=== PATIENT | female | born 1980 | race Caucasian/White ===

== ENCOUNTER 2017-12-06 22:56 | Emergency (ER) | payer OTHER ==
[2017-12-06] MEDS ORDERED: BENZONATATE 100 MG CAPSULE PO ONE (23:43)
--- NOTE | 2017-12-06 23:49 | ER Document Report ---
HPI - HPI Pain Level: 4 Notes: Patient is a 37-year-old female with no significant past medical history presents to the ED complaining of nasal congestion/discharge, dry nonproductive cough, body ache, subjective fever, and occasional nausea/vomiting with p.o. intake only. Her symptoms have been ongoing for the last 6-7 days. Pt states that she vomited once this morning, no hematemesis, melena, or hematochezia. Patient has been exposed to a similar illness within her family. She still urinating normally and having normal bowel movements. Patient states that she is still eating and drinking without any difficulties, but does have a decreased p.o. intake. Denies any headache, current fever, neck pain, sore throat, chest pain, palpitations, syncope, shortness of breath, wheeze, dyspnea , abdominal pain, diarrhea, urinary retention, dysuria, hematuria, or rash. - ROS Notes: REVIEW OF SYSTEMS: CONSTITUTIONAL : see hpi EENT: see hpi CARDIOVASCULAR: Denies chest pain. Denies palpitations or racing or irregular heart beat. Denies ankle edema. RESPIRATORY: see hpi. Denies shortness of breath, difficulty breathing, or wheezing. GASTROINTESTINAL: see hpi. Denies abdominal pain or distention. Denies blood in vomitus, stools, or per rectum. GENITOURINARY: Denies difficulty urinating, painful urination, burning, frequency, blood in urine, or discharge. MUSCULOSKELETAL: Denies back or neck pain or stiffness. Denies joint pain or swelling. SKIN: Denies rash, lesions or sores. NEUROLOGICAL: Denies confusion or altered mental status. Denies passing out or loss of consciousness. Denies dizziness or lightheadedness. Denies headache. Denies problems with gait or speech. Denies sensory loss, numbness, or tingling. Denies seizures. ALL OTHER SYSTEMS REVIEWED AND NEGATIVE. Dictation was performed using [employer] voice recognition software - EENT EENT: DENIES: Sore Throat, Ear Pain, Eye problems - NEURO Neurology: DENIES: Headache, Weakness, Vision blurred, Dizzinesss / Vertigo - CARDIOVASCULAR Cardiovascular: DENIES: Chest pain - RESPIRATORY Respiratory: REPORTS: Coughing. DENIES: Trouble Breathing - GASTROINTESTINAL Gastrointestinal: DENIES: Abdominal Pain, Black / Bloody Stools - URINARY Urinary: DENIES: Dysuria - MUSCULOSKELETAL Musculoskeletal: DENIES: Extremity pain Past Medical History - Social History Smoking Status: Never Smoker Family History: Reviewed & Not Pertinent Patient has suicidal ideation: No Patient has homicidal ideation: No Pulmonary Medical History: Reports: Hx Asthma Renal/ Medical History: Denies: Hx Peritoneal Dialysis Vertical Provider Document - CONSTITUTIONAL Agree With Documented VS: Yes Notes: PHYSICAL EXAMINATION: GENERAL: Well-appearing, well-nourished and in no acute distress. A&Ox4 HEAD: Atraumatic, normocephalic. EYES: Pupils equal round and reactive to light, extraocular movements intact, sclera anicteric, conjunctiva are normal. ENT: EAC clear b/l. TM's intact b/l without erythema, fluid, or perforation. Nares patent and with clear discharge. oropharynx mild erythema without exudates. No tonsilar hypertrophy & without erythema or exudate. No palatine shift. Uvula midline. No tongue protrusion. No drooling, hoarseness, or airway compromise. Moist mucous membranes. No sinus tenderness. NECK: Normal range of motion, supple without lymphadenopathy. No rigidity/ meningismus. LUNGS: Breath sounds clear to auscultation bilaterally and equal. No wheezes rales or rhonchi. HEART: Regular rate and rhythm without murmurs, rubs, gallops. ABDOMEN: Soft, nontender, nondistended abdomen. No guarding, no rebound. No masses appreciated. Normal bowel sounds present. No CVA tenderness bilaterally. No obvious hepatosplenomegaly. Obese abdomen. NEUROLOGICAL: Normal speech, normal gait. Normal sensory, motor exams PSYCH: Normal mood, normal affect. SKIN: Warm, Dry, normal turgor, no rashes or lesions noted. Course - Re-evaluation Re-evalutation: 12/06/17 23:47 Patient is an afebrile, well-hydrated, 37-year-old female who presents to the ED with acute URI, suspect viral. Vitals are stable. PE is otherwise unremarkable. No labs or imaging warranted at this time based on H&P. Low suspicion for any meningitis, sepsis, peritonsillar/pharyngeal abscess, respiratory compromise, Andres's, severe dehydration, acute abdomen, or other emergent systemic condition at this time. Patient is aware this condition can change from initial presentation and she needs to monitor symptoms closely. Conservative measures otherwise for symptoms. Recheck with your PCM in 3-5 days. Return to the ED with any worsening/concerning symptoms otherwise as reviewed in discharge. Patient is in agreement. Discharge - Discharge Clinical Impression: Acute URI Condition: Stable Disposition: HOME, SELF-CARE Instructions: Upper Respiratory Illness ([facility]), Nausea or Vomiting, Nonspecific ([facility]) Additional Instructions: Maintain adequate fluid intake Take meds as directed [place] diet Zofran as needed Tessalon as needed for cough every 8 hours tylenol/ibuprofen as needed over the counter cold medication as needed for symptoms Humidified air may help F/u: with your PCM in 3-5 days for a recheck Return to the ED with any fever, worsening pain, chest pain, palpitations, syncope, worsening PORTER, neck pain/stiffness, shortness of breath, wheezing, drooling, trouble swallowing/breathing, abdominal pain, worsening n/v/d, rash, or worsening/concerning symptoms otherwise. Prescriptions: Benzonatate [Tessalon Perle 100 mg Capsule] 100 mg PO Q8HP PRN #15 cap PRN Reason: Ondansetron [Zofran Odt 4 mg Tablet] 1 - 2 tab PO Q4H PRN #15 tab.rapdis PRN Reason: For Nausea/Vomiting Referrals: [facility] [Provider Group] - Follow up as needed [facility] [Provider Group] - Follow up as needed
[2017-12-07 00:10] VITALS: BP 127/69
== END 2017-12-07 00:05 | disposition home or self-care (01) ==
LOC: ER 22:56
DX: J06.9 Acute upper respiratory infection, unspecified (principal); R05 Cough; R09.89 Other specified symptoms and signs involving the circulatory and respiratory systems; R11.2 Nausea with vomiting, unspecified; R52 Pain, unspecified; J45.909 Unspecified asthma, uncomplicated
CPT/HCPCS: 99283

== ENCOUNTER 2018-03-05 14:38 | Emergency (ER) | payer OTHER ==
[2018-03-05] MEDS ORDERED: NORMAL SALINE 1000 ML 1,000 ML IV ONE (14:56)
[2018-03-05] MEDS ORDERED: ONDANSETRON HCL INJ/PF 4 MG/2 ML SDV IV ONE (14:56)
[2018-03-05] MEDS ORDERED: MORPHINE SULFATE 10 MG/ML INJ IV ONE (14:57)
--- NOTE | 2018-03-05 14:58 | ER Document Report ---
ED Medical Screen (RME) - General Chief Complaint: Upper Abdominal Pain Stated Complaint: ABDOMINAL PAIN Time Seen by Provider: 03/05/18 14:56 Notes: Patient has severe right upper quadrant abdominal pain with nausea and vomiting. States this started approximately 3 days ago. She states she recently had a total hysterectomy for uterine cancer approximately 9 months ago. TRAVEL OUTSIDE OF THE [place] IN LAST 30 DAYS: No - Related Data Allergies/Adverse Reactions: Penicillins Allergy (Verified 03/05/18 14:50) Past Medical History - Social History Chew tobacco use (# tins/day): No Frequency of alcohol use: None Drug Abuse: None Pulmonary Medical History: Reports: Hx Asthma Renal/ Medical History: Denies: Hx Peritoneal Dialysis Past Surgical History: Reports: Hx Abdominal Surgery Physical Exam - Vital signs Vitals: Temp Pulse Resp BP Pulse Ox 97.8 F 82 16 144/83 H 97 03/05/18 14:42 03/05/18 14:42 03/05/18 14:42 03/05/18 14:42 03/05/18 14:42 Course - Vital Signs Vital signs: Temp Pulse Resp BP Pulse Ox 97.8 F 82 16 144/83 H 97 03/05/18 14:42 03/05/18 14:42 03/05/18 14:42 03/05/18 14:42 03/05/18 14:42
[2018-03-05] MEDS ORDERED: HYDROMORPHONE HCL INJ/PF 2 MG/ML AMPULE IV ONE (16:08)
--- NOTE | 2018-03-05 16:08 | ER Document Report ---
ED GI/ - General Chief Complaint: Upper Abdominal Pain Stated Complaint: ABDOMINAL PAIN Time Seen by Provider: 03/05/18 14:56 Mode of Arrival: Ambulatory Information source: Patient Notes: Patient presents complaining of 3 day history of right upper quadrant abdominal pain that is worsened after eating. Patient reports nausea with diarrhea yesterday. Patient denies any vomiting or fever. Patient denies any urinary symptoms. TRAVEL OUTSIDE OF THE [place] IN LAST 30 DAYS: No - HPI Patient complains to provider of: Abdominal pain. No: Flank pain, Vomiting Onset: Other - 3 days Timing/Duration: Worse Quality of pain: Sharp Pain Level: 5 Location: RUQ Vaginal bleeding (Compared to normal period): None Sexual history: Active Associated symptoms: Diarrhea - Yesterday, Nausea. denies: Urinary hesitancy, Urinary frequency, Urinary retention, Vomiting Exacerbated by: Food Relieved by: Denies Similar symptoms previously: No Recently seen / treated by doctor: No - Related Data Allergies/Adverse Reactions: Penicillins Allergy (Verified 03/05/18 14:50) Past Medical History - General Information source: Patient - Social History Smoking Status: Never Smoker Chew tobacco use (# tins/day): No Frequency of alcohol use: None Drug Abuse: None Lives with: Spouse/Significant other Family History: Reviewed & Not Pertinent Patient has suicidal ideation: No Patient has homicidal ideation: No - Past Medical History Cardiac Medical History: Reports: Hx Hypertension Pulmonary Medical History: Reports: Hx Asthma Renal/ Medical History: Denies: Hx Peritoneal Dialysis Psychiatric Medical History: Reports: Hx Anxiety, Hx Depression Past Surgical History: Reports: Hx Abdominal Surgery Review of Systems - Review of Systems Constitutional: No symptoms reported. denies: Fever, Recent illness EENT: No symptoms reported Cardiovascular: No symptoms reported. denies: Chest pain Respiratory: No symptoms reported. denies: Cough, Short of breath Gastrointestinal: Abdominal pain, Diarrhea, Nausea. denies: Vomiting Genitourinary: No symptoms reported. denies: Dysuria, Flank pain Female Genitourinary: No symptoms reported Musculoskeletal: No symptoms reported. denies: Back pain Skin: No symptoms reported Hematologic/Lymphatic: No symptoms reported Neurological/Psychological: No symptoms reported Physical Exam - Vital signs Vitals: Temp Pulse Resp BP Pulse Ox 97.8 F 82 16 144/83 H 97 03/05/18 14:42 03/05/18 14:42 03/05/18 14:42 03/05/18 14:42 03/05/18 14:42 - General General appearance: Appears well, Alert In distress: Mild - HEENT Head: Normocephalic Eyes: Normal Nasal: Normal Mouth/Lips: Normal Mucous membranes: Normal Pharynx: Normal Neck: Normal, Supple. No: Lymphadenopathy - Respiratory Respiratory status: No respiratory distress Chest status: Nontender Breath sounds: Normal. No: Rales, Rhonchi, Stridor, Wheezing Chest palpation: Normal - Cardiovascular Rhythm: Regular Heart sounds: S1 appreciated, S2 appreciated Murmur: No - Abdominal Inspection: Morbidly Obese Distension: No distension Bowel sounds: Normal Tenderness: Tender - Right upper quadrant - Back Back: Normal, Nontender. No: CVA tenderness - Extremities General upper extremity: Normal inspection, Nontender, Normal strength General lower extremity: Normal inspection, Nontender, Normal strength - Neurological Neuro grossly intact: Yes Cognition: Normal [place] Coma Scale Eye Opening: Spontaneous Raquel Coma Scale Verbal: Oriented Raquel Coma Scale Motor: Obeys Commands Raquel Coma Scale Total: 15 - Psychological Associated symptoms: Normal affect, Normal mood - Skin Skin Temperature: Warm Skin Moisture: Dry Skin Color: Normal Course - Re-evaluation Re-evalutation: 03/05/18 18:19 Patient complains of continued abdominal pain is requesting additional medication. Patient advised of diagnostic test results and importance of follow -up with a surgeon for further evaluation. Patient encouraged to eat a low-fat diet. - Vital Signs Vital signs: Temp Pulse Resp BP Pulse Ox 98.0 F 80 16 143/82 H 98 03/05/18 19:00 03/05/18 19:00 03/05/18 19:00 03/05/18 19:00 03/05/18 19:00 - Laboratory Result Diagrams: 03/05/18 16:09 03/05/18 16:09 Laboratory results interpreted by me: 03/05/18 03/05/18 16:09 16:09 RBC 5.41 H Hgb 9.9 L Hct 32.6 L MCV 60 L MCH 18.3 L MCHC 30.4 L RDW 22.2 H Lipase 344.4 H Labs- Entire Visit 03/05/18 03/05/18 03/05/18 15:45 16:09 16:09 WBC 8.2 RBC 5.41 H Hgb 9.9 L Hct 32.6 L MCV 60 L MCH 18.3 L MCHC 30.4 L RDW 22.2 H Plt Count 382 Seg Neutrophils % 60.0 Lymphocytes % 27.6 Monocytes % 8.3 Eosinophils % 3.5 Basophils % 0.6 Absolute Neutrophils 4.9 Absolute Lymphocytes 2.3 Absolute Monocytes 0.7 Absolute Eosinophils 0.3 Absolute Basophils 0.0 Large Platelets PRESENT Platelet Comment ADEQUATE Hypochromasia 1+ Poikilocytosis SLIGHT Anisocytosis 3+ Microcytosis 3+ Target Cells SLIGHT Ovalocytes 1+ Sodium 142.8 Potassium 4.5 Chloride 106 Carbon Dioxide 26 Anion Gap 11 BUN 16 Creatinine 0.75 Est GFR ( Amer) > 60 Est GFR (Non-Af Amer) > 60 Glucose 96 Calcium 9.4 Total Bilirubin 0.7 Direct Bilirubin 0.3 Neonat Total Bilirubin Not Reportable Neonat Direct Bilirubin Not Reportable Neonat Indirect Bili Not Reportable AST 24 ALT 28 Alkaline Phosphatase 94 Total Protein 7.4 Albumin 4.0 Lipase 344.4 H Urine Color STRAW Urine Appearance CLEAR Urine pH 5.0 Ur Specific [place] 1.010 Urine Protein NEGATIVE Urine Glucose (UA) NEGATIVE Urine Ketones NEGATIVE Urine Blood NEGATIVE Urine Nitrite NEGATIVE Urine Bilirubin NEGATIVE Urine Urobilinogen NEGATIVE Ur Leukocyte Esterase NEGATIVE Urine WBC (Auto) 2 Urine RBC (Auto) 0 Urine Bacteria (Auto) TRACE Squamous Epi Cells Auto 2 Urine Ascorbic Acid NEGATIVE - Diagnostic Test Radiology reviewed: Reports reviewed Discharge - Discharge Clinical Impression: Cholelithiasis Qualifiers: Cholelithiasis location: gallbladder Cholecystitis presence: without cholecystitis Biliary obstruction: without biliary obstruction Qualified Code(s) : K80.20 - Calculus of gallbladder without cholecystitis without obstruction Abdominal pain Qualifiers: Abdominal location: right upper quadrant Qualified Code(s): R10.11 - Right upper quadrant pain Condition: Stable Disposition: HOME, SELF-CARE Instructions: Abdominal Pain ([facility]), Gallbladder Disease ([facility]) Additional Instructions: Return immediately for any new or worsening symptoms: Worsening pain, vomiting, yellowing of the skin and darkening of the urine, or any concerning symptoms Followup with your primary care provider, call tomorrow to make a followup appointment Follow-up with a general surgeon for further evaluation, call tomorrow for an appointment Eat a low fat diet Prescriptions: Oxycodone HCl/Acetaminophen [Percocet 5-325 mg Tablet] 1 - 2 tab PO ASDIR PRN # 15 tablet PRN Reason: Promethazine HCl [Phenergan 25 mg Tablet] 25 mg PO Q6H PRN #10 tablet PRN Reason: Referrals: [facility] [Provider Group] - Follow up in 3-5 days
[2018-03-05 16:39] LABS: ABSOLUTE EOSINOPHILS # (AUTO) 0.3 10^3/uL (0.0-0.6); ABSOLUTE LYMPHOCYTES (AUTO) 2.3 10^3/uL (0.5-4.7); ABSOLUTE MONOCYTES (AUTO) 0.7 10^3/uL (0.1-1.4); ABSOLUTE NEUT (AUTO) 4.9 10^3/uL (1.7-8.2); BASOPHILS % (AUTO) 0.6 % (0-2); EOSINOPHILS % (AUTO) 3.5 % (0-6); HEMATOCRIT 32.6 % (36.0-47.0); HEMOGLOBIN 9.9 g/dL (12.0-15.5); LYMPHOCYTES % (AUTO) 27.6 % (13-45); MEAN CORPUSCULAR HEMOGLOBIN 18.3 pg (27.0-33.4); MEAN CORPUSCULAR HGB CONC 30.4 g/dL (32.0-36.0); MONOCYTES % (AUTO) 8.3 % (3-13); PLATELET COUNT 382 10^3/uL (150-450); RED BLOOD COUNT 5.41 10^6/uL (3.72-5.28); RED CELL DISTRIBUTION WIDTH 22.2 % (11.5-14.0); TOTAL CELLS COUNTED % (AUTO) 100 %; WHITE BLOOD COUNT 8.2 10^3/uL (4.0-10.5)
[2018-03-05 16:55] LABS: ALANINE AMINOTRANSFERASE 28 U/L (9-52); ALKALINE PHOSPHATASE 94 U/L (38-126); ANION GAP 11 (5-19); ASPARTATE AMINO TRANSFERASE 24 U/L (14-36); BILIRUBIN,DIRECT 0.3 mg/dL (0.0-0.4); BILIRUBIN,TOTAL 0.7 mg/dL (0.2-1.3); BLOOD UREA NITROGEN 16 mg/dL (7-20); CALCIUM 9.4 mg/dL (8.4-10.2); CARBON DIOXIDE 26 mmol/L (22-30); CHLORIDE 106 mmol/L (98-107); GLUCOSE 96 mg/dL (75-110); LIPASE 344.4 U/L (23-300); POTASSIUM 4.5 mmol/L (3.6-5.0); SODIUM 142.8 mmol/L (137-145); TOTAL PROTEIN 7.4 g/dL (6.3-8.2)
--- NOTE | 2018-03-05 17:00 | RADIOLOGY REPORT (SQ) ---
EXAM DESCRIPTION: U/S ABDOMEN LIMITED W/O DOP COMPLETED DATE/TIME: 03/05/2018 4:50 pm REASON FOR STUDY: ruq abd pain COMPARISON: None. TECHNIQUE: Dynamic and static grayscale images acquired of the abdomen and recorded on PACS. Kryso tamara selected color Doppler and spectral images recorded. LIMITATIONS: None. FINDINGS: PANCREAS: Poorly seen. LIVER: 18 cm. Increased echogenicity. LIVER VASCULATURE: Normal directional flow of the main portal vein and hepatic veins. GALLBLADDER: Gallstones. No pericholecystic fluid. No wall thickening. ULTRASOUND-DETECTED LORENZ'S SIGN: Negative. INTRAHEPATIC DUCTS AND COMMON DUCT: CBD and intrahepatic ducts normal caliber. No filling defects. INFERIOR VENA CAVA: Normal flow. AORTA: The proximal aorta was not well seen. The mid and distal aorta are normal. RIGHT KIDNEY: Normal size, 12.3 cm. Normal echogenicity. No solid or suspicious masses. No hydroneph rosis. No calcifications. PERITONEAL AND RIGHT PLEURAL SPACE: No ascites or effusions. OTHER: No other significant findings. IMPRESSION: Cholelithiasis with no evidence of acute cholecystitis. TECHNICAL DOCUMENTATION: JOB ID: [id number] [employer]- All Rights Reserved Reading location - IP/workstation name: [email or web address]
[2018-03-05 17:06] LABS: ANISOCYTOSIS 3+; HYPOCHROMASIA 1+; OVALOCYTES 1+; PLATELET COMMENT ADEQUATE; PLATELET LARGE PRESENT; POIKILOCYTOSIS SLIGHT; TARGET CELLS SLIGHT
[2018-03-05 17:07] LABS: MEAN CORPUSCULAR VOLUME 60 fl (80-97)
[2018-03-05 17:39] LABS: APPEARANCE,URINE CLEAR; BILIRUBIN,URINE NEGATIVE (NEGATIVE); COLOR,URINE STRAW; GLUCOSE, URINE NEGATIVE (NEGATIVE); KETONES,URINE NEGATIVE (NEGATIVE); LEUKOCYTE ESTERASE,URINE NEGATIVE (NEGATIVE); NITRITE,URINE NEGATIVE (NEGATIVE); PROTEIN,URINE NEGATIVE (NEGATIVE); UROBILINOGEN,URINE NEGATIVE mg/dL (<2.0)
[2018-03-05] MEDS ORDERED: FENTANYL CITRATE INJ/PF 100 MCG/2 ML AMPUL IV ONE (18:21)
[2018-03-05 19:01] VITALS: BP 143/82
== END 2018-03-05 19:01 | disposition home or self-care (01) ==
LOC: ER 14:38
DX: K80.20 Calculus of gallbladder without cholecystitis without obstruction (principal); R10.11 Right upper quadrant pain; R11.0 Nausea; R19.7 Diarrhea, unspecified; I10 Essential (primary) hypertension; J45.909 Unspecified asthma, uncomplicated
CPT/HCPCS: 99284; 96361; 96374; 96375; 36415; 83690; 85025; 80053; 81001; 76705; J3010; J2270; J1170; J2405; J7030

== ENCOUNTER 2018-04-25 12:40 | Emergency (ER) | payer OTHER ==
[2018-04-25] MEDS ORDERED: ONDANSETRON 4 MG TAB.RAPDIS PO ONE (13:08)
[2018-04-25] MEDS ORDERED: KETOROLAC TROMETHAMINE 60 MG/2 ML SDV IM ONE (13:09)
--- NOTE | 2018-04-25 13:09 | ER Document Report ---
ED Extremity Problem, Lower - General Chief Complaint: Ankle Pain Stated Complaint: LEG PAIN Time Seen by Provider: 04/25/18 12:58 Mode of Arrival: Wheelchair Information source: Patient Notes: 37-year-old morbidly obese female presents to ED for complaint of left ankle foot and knee pain. She states that her fell on her when he was trying to catch her yesterday. TRAVEL OUTSIDE OF THE [place] IN LAST 30 DAYS: No - HPI Patient complains to provider of: Injury, Pain, Swelling Location: Ankle, Foot, Knee Occurred: Yesterday Where: Home, Indoors Onset/Duration: Persistent Quality of pain: Achy, Sharp Severity: Moderate Pain Level: 4 Context: Fell Recent injury: Possibly Associated symptoms: Painful ambulation Exacerbated by: Hanging down, Movement, Walking Relieved by: Elevation, Ice, Rest - Related Data Allergies/Adverse Reactions: Penicillins Allergy (Verified 04/25/18 12:41) Past Medical History - General Information source: Patient - Social History Smoking Status: Never Smoker Cigarette use (# per day): No Chew tobacco use (# tins/day): No Smoking Education Provided: No Frequency of alcohol use: None Drug Abuse: None Lives with: Family Family History: Reviewed & Not Pertinent Patient has suicidal ideation: No Patient has homicidal ideation: No - Past Medical History Cardiac Medical History: Reports: Hx Hypertension Pulmonary Medical History: Reports: Hx Asthma Neurological Medical History: Reports: None Endocrine Medical History: Reports: None Renal/ Medical History: Reports: Hx Ovarian Cysts, Other - Uterine cancer endometriosis Malignancy Medical History: Reports: Other - Uterine GI Medical History: Reports: None Musculoskeltal Medical History: Reports Hx Arthritis, Reports Hx Musculoskeletal Deformity, Reports Hx Musculoskeletal Trauma Skin Medical History: Reports None Psychiatric Medical History: Reports: Hx Anxiety, Hx Bipolar Disorder, Hx Depression, Hx Schizophrenia Traumatic Medical History: Reports: Hx Fractures Infectious Medical History: Reports: None Past Surgical History: Reports: Hx Abdominal Surgery, Hx Cholecystectomy, Hx Gynecologic Surgery, Hx Hysterectomy - Immunizations Immunizations up to date: Yes Hx Diphtheria, Pertussis, Tetanus Vaccination: Yes Review of Systems - Review of Systems Constitutional: No symptoms reported EENT: No symptoms reported Cardiovascular: No symptoms reported Respiratory: No symptoms reported Gastrointestinal: No symptoms reported Genitourinary: No symptoms reported Female Genitourinary: No symptoms reported Musculoskeletal: Joint pain - Pain and swelling to the knee and ankle on the left, Ankle swelling Skin: No symptoms reported Hematologic/Lymphatic: No symptoms reported Neurological/Psychological: No symptoms reported -: Yes All other systems reviewed and negative Physical Exam - Vital signs Vitals: Temp Pulse Resp BP Pulse Ox 97.9 F 70 20 113/64 98 04/25/18 12:46 04/25/18 12:46 04/25/18 12:46 04/25/18 12:46 04/25/18 12:46 Interpretation: Normal - General General appearance: Appears well, Alert - HEENT Head: Normocephalic, Atraumatic Eyes: Normal Pupils: PERRL - Respiratory Respiratory status: No respiratory distress Chest status: Nontender Breath sounds: Normal Chest palpation: Normal - Cardiovascular Rhythm: Regular Heart sounds: Normal auscultation Murmur: No - Abdominal Inspection: Normal Distension: No distension Bowel sounds: Normal Tenderness: Nontender Organomegaly: No organomegaly - Back Back: Normal, Nontender - Extremities General upper extremity: Normal inspection, Nontender, Normal color, Normal ROM , Normal temperature General lower extremity: Normal inspection, Normal color, Normal temperature. No: Aubrey's sign Knee: Tender, Pain with ROM, Patellar tendon intact, Tender joint line, Unable to bear weight - Due to pain. No: Abrasion, Deformity, Dislocation, Drawer's test instability, Ecchymosis, Instability, Joint effusion, Laceration, Laxity with valgus stress, Laxity with varus stress, Popliteal fossa tender Calf: Normal, Nontender Ankle: Tender, Limited ROM - Due to pain, Unable to bear weight - Due to pain. No: Abrasion, Deformity, Ecchymosis, Edema, Instability, Positive Xiong's test Foot: Tender, Metatarsal compress. pain, No evidence of FB. No: Abrasion, Deformity, Ecchymosis, Edema, Instability, Laceration, Nail injury, Navicular tenderness, Puncture wound, Tender 5th metatarsal - Neurological Neuro grossly intact: Yes Cognition: Normal Orientation: AAOx4 [place] Coma Scale Eye Opening: Spontaneous Raquel Coma Scale Verbal: Oriented Raquel Coma Scale Motor: Obeys Commands [place] Coma Scale Total: 15 Speech: Normal Motor strength normal: LUE, RUE, LLE, RLE Sensory: Normal - Psychological Associated symptoms: Normal affect, Normal mood - Skin Skin Temperature: Warm Skin Moisture: Dry Skin Color: Normal Course - Re-evaluation Re-evalutation: 04/25/18 14:40 Discussed x-rays with patient. Patient was given instructions for exercise for knee ankle and foot. Patient was also given exercises for elevation and ice of painful areas. Patient was instructed to follow-up with orthopedics or podiatry. Patient was placed in a Johnnie wrap and stirrup splint to the ankle. The patient is nontoxic appearing with stable vitals. They are afebrile. Ankle exam shows no deformities with no obvious ligament instability. There is a normal pulse and sensation distally. There is no redness or signs of infection. X-rays show no acute fracture per the radiologist. Patient will be placed in an Johnnie wrap for comfort. Crutches will be offered and given if requested. Patient will be instructed to follow-up with not better in 1 week, sooner for increasing pain, fever, redness, numbness, tingling, weakness, any further concerns. Patient will be instructed to rest, ice, elevate their ankle. - Vital Signs Vital signs: Temp Pulse Resp BP Pulse Ox 97.9 F 70 20 113/64 98 04/25/18 12:46 04/25/18 12:46 04/25/18 12:46 04/25/18 12:46 04/25/18 12:46 - Diagnostic Test Radiology reviewed: Image reviewed, Reports reviewed Procedures - Immobilization Left Ankle Time completed: 14:52 Immobilizer type: Johnnie wrap, Ankle stirrup Performed by: PCT Post-Proc Neuro Vasc Exam: Normal Alignment checked and good: Yes Discharge - Discharge Clinical Impression: Bone spur of left foot Left ankle pain Qualifiers: Chronicity: acute Qualified Code(s): M25.572 - Pain in left ankle and joints of left foot Left knee pain Qualifiers: Chronicity: acute Qualified Code(s): M25.562 - Pain in left knee Condition: Stable Disposition: HOME, SELF-CARE Instructions: Plantar Fasciitis or Heel Spur ([facility]), Exercises for the Foot Muscles ([facility]), Ankle Exercise Program ([facility]), Use of [id number] Ibuprofen ( [facility]) Additional Instructions: SPRAINED KNEE: Your sprained knee results from a stretching or tearing of the ligaments which support the joint. This often results from a bending stress -- such as a twisting fall while skiing or a "clip" while playing football. The ligaments will require time and protection to heal adequately. A knee sprain can be quite serious, and should be taken seriously. The usual treatment is splinting of the knee, ice packs, and elevation. You shouldn't walk on the leg if weightbearing is painful. Unless the sprain is obviously a minor one, follow-up exam is very important. The degree of ligament damage often cannot be fully assessed at first due to muscle spasm and pain. Your treatment plan may change based on the physician's findings during your follow-up examination. Call the doctor at once if there is severe swelling, increasing pain, numbness, or other alarming symptoms. JOHNNIE WRAP: A compression dressing (johnnie wrap) has been placed. This helps hold the area still. It limits swelling and internal bleeding. The wrap should be comfortably snug -- not tight. You should feel a sense of pressure, but not severe pain under the wrap. Unless the physician tells you otherwise, you can adjust the wrap for comfort. If the wrap causes symptoms suggesting it's too tight -- uncomfortable pressure, swelling or discoloration beyond the wrap, numbness, or severe pain - - you must loosen the wrap. If these symptoms don't resolve promptly, return for re-evaluation. ANKLE STIRRUP SPLINT: You are to use an ankle brace called a stirrup splint. This type of brace allows you to place greater stresses on the ankle without risk of re-injury, and is often used for more severe ankle injuries such as avulsion fractures and ligament ruptures. The splint can be worn over a sock or tape. For proper support, wear the splint with a shoe over it. It's important that the splint fit properly. Adjust the heel tension, if needed. If your splint has air bladders, peel back the bottom of each air bladder, then move the Velcro attachment of the heel strap up or down. Air bladder pressure can be adjusted by pulling up the valve at the top, threading the air tube down into the main bladder, then blowing air into the bladder or squeezing it out. The two sides of the stirrup can be moved forward or back on your ankle by changing the attachment of the main straps. If you are unable to use the ankle comfortably in the splint, return for re -evaluation. ICE & ELEVATION: Apply ice packs frequently against the painful area. Many different schedules are recommended, such as "20 minutes on, 20 minutes off" or "one hour ice, two hours rest." If you need to work, you may need to go longer between ice treatments. You should plan to have the area ice packed AT LEAST one- fourth of the time. The ice should be applied over the wrap, tape, or splint, or over a layer of cloth -- not directly against the skin. Some ice bags have a built-in cloth and can be put directly on the skin. Your injured part should be elevated as much as possible over the next 48 hours. Try to keep the injury above the level of the heart. Avoid use of the injured area. Elevation and rest will decrease the swelling. USE OF [id number] IBUPROFEN: Ibuprofen (Advil, Nuprin, Medipren, Motrin IB) is a medication for fever and pain control. In addition, it has anti- inflammatory effects which may be beneficial, especially in the treatment of injuries. It's best to take ibuprofen with food. Persons with ulcer disease or allergy to aspirin should notify their physician of this before taking ibuprofen. Ibuprofen can be given every four to six hours, for a total of four doses daily. Age Pain or fever dose Antiinflammatory dose 6-8 yr 200 mg (1 tab) 200 mg (1 tab) 9-11 yr 200 mg (1 tab) 200-400 mg (1-2 tab) 11-14 yr 200-400 mg (1-2 tab) 400 mg (2 tab) 15-adult 400 mg (2 tab) 600 mg (3 tab) FOLLOW-UP CARE: If you have been referred to a physician for follow-up care, call the physician s office for an appointment as you were instructed or within the next two days. If you experience worsening or a significant change in your symptoms, notify the physician immediately or return to the Emergency Department at any time for re-evaluation. Referrals: ELIANA CONTRERAS MD [ACTIVE STAFF] - Follow up as needed MARTIN THOMAS DPM [ACTIVE STAFF] - Follow up as needed
--- NOTE | 2018-04-25 14:09 | RADIOLOGY REPORT (SQ) ---
EXAM DESCRIPTION: FOOT LEFT COMPLETE COMPLETED DATE/TIME: 04/25/2018 2:02 pm REASON FOR STUDY: fall pain swelling COMPARISON: None. NUMBER OF VIEWS: Three views. TECHNIQUE: AP, lateral and oblique radiographic images acquired of the left foot. LIMITATIONS: None. FINDINGS: MINERALIZATION: Normal. BONES: No acute fracture or dislocation. There is a small plantar calcaneal spur and there is a larg e dorsal calcaneal spur. JOINTS: No effusions. SOFT TISSUES: No soft tissue swelling. No foreign body. OTHER: No other significant finding. IMPRESSION: Calcaneal spurs. No acute abnormality. Likely prior Achilles tendinopathy. TECHNICAL DOCUMENTATION: JOB ID: [id number] [employer]- All Rights Reserved Reading location - IP/workstation name: [email or web address]
--- NOTE | 2018-04-25 14:11 | RADIOLOGY REPORT (SQ) ---
EXAM DESCRIPTION: TIBIA FIBULA LEFT COMPLETED DATE/TIME: 04/25/2018 2:02 pm REASON FOR STUDY: fall pain swelling COMPARISON: None. NUMBER OF VIEWS: Two views. TECHNIQUE: Two radiographic images acquired of the left tibia and fibula to include the knee and ank le in at least one projection. LIMITATIONS: None. FINDINGS: MINERALIZATION: Normal. BONES: No acute fracture dislocation. Posterior patellar osteophytes. Lateral knee joint osteophyte s. SOFT TISSUES: No obvious swelling or foreign body. OTHER: No other significant finding. IMPRESSION: Degenerative joint disease in the knee. No acute abnormality in the tibia or fibula. TECHNICAL DOCUMENTATION: JOB ID: [id number] [employer]- All Rights Reserved Reading location - IP/workstation name: [email or web address]
--- NOTE | 2018-04-25 14:13 | RADIOLOGY REPORT (SQ) ---
EXAM DESCRIPTION: ANKLE LEFT COMPLETE COMPLETED DATE/TIME: 04/25/2018 2:02 pm REASON FOR STUDY: fall pain swelling COMPARISON: None. NUMBER OF VIEWS: Three views. TECHNIQUE: AP, lateral, and oblique radiographic images acquired of the left ankle. LIMITATIONS: None. FINDINGS: MINERALIZATION: Normal. BONES: No acute fracture or dislocation. Once again there is a very large dorsal calcaneal spur. JOINTS: No effusions. SOFT TISSUES: No soft tissue swelling. No foreign body. OTHER: No other significant finding. IMPRESSION: Likely prior Achilles tendinopathy. No acute fracture or dislocation in the ankle. TECHNICAL DOCUMENTATION: JOB ID: [id number] [employer]- All Rights Reserved Reading location - IP/workstation name: [email or web address]
[2018-04-25 14:31] VITALS: BP 106/55
== END 2018-04-25 14:45 | disposition home or self-care (01) ==
LOC: ER 12:40
DX: M77.32 Calcaneal spur, left foot (principal); M25.572 Pain in left ankle and joints of left foot; M25.562 Pain in left knee; E66.01 Morbid (severe) obesity due to excess calories; I10 Essential (primary) hypertension; Z88.0 Allergy status to penicillin; Z90.49 Acquired absence of other specified parts of digestive tract
CPT/HCPCS: 99283; 96372; 73610; 73630; 73590; L1902; J1885; S0119